=== PATIENT | male | born 1950 | race Caucasian/White ===

== ENCOUNTER 2016-10-26 18:26 | Emergency (ER) | payer OTHER ==
--- NOTE | 2016-10-26 19:04 | ED ORDER SUMMARY ---
..... Patient: KATIE DAVID OrderSheet [facility] VisitID: [id number] [address] [place] [address] 65y, M Registration Date/Time: 10/26/2016 ORDER SHEET Weight: 83.4 kg (stated) Allergies: No Known Drug Allergy GENERAL ORDERS: Dress Wounds (pressure bandage) (18:55 10/26/2016 Zaynab A.R.N.P.) (18:56 [facility] Tech1) MEDICATION ORDERS: IV FLUIDS: ORDER SHEET NOTES: [Electronically signed by Kadi Garg R.N. (19:10 10/26/2016)] [Electronically signed by Marie JonesR.N.PLian (22:44 10/26/2016)] [Electronically locked/signed by Kadi Garg R.N. (19:10 10/26/2016)]
--- NOTE | 2016-10-26 19:04 | ED CLINICAL REPORT ---
Clinical Report - Physicians/Mid Levels [facility] [address] [place] [address] 10/26/2016 18:27 Patient: KATIE DAVID Time Seen: 18:49; initial patient contact, initial documentation, patient care assumed. Arrived- By private vehicle. Historian- patient and family. HISTORY OF PRESENT ILLNESS Chief Complaint: ; ;(bleeding). Not worsened by anything. (relieved by pressure). Severity is described as being severe. No radiation. This started just prior to arrival and is now gone. Symptoms located in the area of the left leg. The patient has not had redness. No swelling, bladder dysfunction, bowel dysfunction, sensory loss or motor loss. No difficulty walking. ( states his leg was bleeding and he filled up sock, thinks vein popped). Patient denies an injury. Similar symptoms previously: None. Recent medical care: Not recently seen/assessed. REVIEW OF SYSTEMS All systems otherwise negative, except as recorded above. PAST HISTORY See nurses notes. ( PROBLEMS: Laceration. Hyperlipidemia. Hypertension. --18:42 Kadi Garg R.N. ADDITIONAL SURGERIES: Hernia Repair. Left shoulder rotator cuff repair. --18:42 Kadi Garg R.N.). SOCIAL HISTORY Heavy tobacco smoker. Regular alcohol use. No drug use. No recent travel. Is a local resident. FAMILY HISTORY Negative. ADDITIONAL NOTES The nursing notes have been reviewed with agreement regarding the chief complaint, HPI, ROS, PMH and patient medications and allergies. PHYSICAL EXAM Vital Signs: 10/26/2016 18:37 BP: 126/86. HR: 88. RR: 16. O2 saturation: 100%. Temp: 97.9 F. Pain level now: 0/10. Have been reviewed as normal and appear to be correct. Appearance: Alert. Oriented X3. No acute distress. Eyes: Pupils equal, round and reactive to light. Eyes normal inspection. Respiratory: No respiratory distress. Skin: Skin intact. Skin warm and dry. Normal skin color. Normal skin turgor. Extremities: Left leg: located in the anterior aspect of mid leg. Neurovascular intact distally. (area to huerta, where varicose vein had been bleeding, no active bleeding now, no closure needed). No erythema, tenderness, swelling, laceration or abrasion. No ecchymosis, puncture wound, foreign body or deformity. No limitation of weight bearing. Lower extremities exhibit normal ROM. No lower extremity edema. Extremities otherwise negative. Gait: Normal gait. Neuro: Oriented X 3. No motor deficit. No sensory deficit. PROGRESS AND PROCEDURES Course of Care: pt appeared upset, asked him what was wrong, and he said he wanted his leg fixed, explained pressure bandage was the tx to fix it, it starts to bleed you hold pressure til it stopped, wounds like these did not require any type of closure, and that there was nothing there to suture. Patient and family counseled in person regarding the patient's stable condition and diagnosis. 19:03. Differential Diagnosis: Other possible considerations: varicose veins, lac, skin avulsion. Above considerations are based on history and physical exam. Differential diagnosis was discussed with patient and patient's family. Disposition: Discharged home in good and improved condition (19:04). Condition: good and stable. CLINICAL IMPRESSION (Varicose Vein - bleeding). INSTRUCTIONS Protect wound and keep wound area clean. Change dressing twice daily. Warnings: GENERAL WARNINGS: Return or contact your physician immediately if your condition worsens or changes unexpectedly, if not improving as expected, or if other problems arise. Specifically return if problem worsens. Follow-up: Follow up with your doctor in about three days as needed and for wound check. Call for an appointment. Summary of care provided to patient. Understanding of the discharge instructions verbalized by patient. (Electronically signed by Marie Jones A.R.N.P. 10/26/2016 22:44)
--- NOTE | 2016-10-26 19:04 | ED NURSING NOTES ---
Clinical Report - Nurses [facility] [address] [place] [address] 10/26/2016 18:27 Patient: KATIE DAVID TRIAGE Triage time 18:37 Oct 26 2016. Acuity: LEVEL 3. Chief Complaint: (bleeding from left lower leg, possibe vericose vein). 18:43 10/26/16. --18:43 Kadi Garg R.N. 18:37 10/26/16. BP: 126/86. HR: 88. RR: 16. O2 saturation: 100%. Temp: 97.9 F. Pain level now: 0/10. --18:43 Kadi Garg R.N. Weight: 83.4 kg stated. Height/Length: 72 inches Per Patient. BMI: 25. --18:36 Kadi Garg R.N. Medications Aspirin. --18:41 Kadi Garg R.N. Vitamin c. --18:41 Kadi Garg R.N. BP medication. --18:41 Kaid Garg R.N. Allergies No Known Drug Allergy. --18:41 Kadi Garg R.N. History Arrived by private vehicle. Historian: patient. Accompanied by family. Location of injuries: left leg. This occurred just prior to arrival. ( Family member noticed pt bleeding from left lower leg. Small lac noted to area. No trauma. Does have varicose veins). No loss of consciousness. No headache, neck pain, back pain, numbness or weakness. PAST MEDICAL HX: Tetanus status: up-to-date. Has not received seasonal influenza immunization. SOCIAL HX: Heavy tobacco smoker (cigarette)- 1 pack per day. Regular alcohol use. No drug use. No infectious disease exposure. ABUSE ASSESSMENT: No report of abuse. SELF HARM ASSESSMENT: A self harm assessment was performed. The patient answered "no" to the question "Have you recently felt down, depressed, or hopeless?", "Have you noticed less interest or pleasure in doing things?", "Do you have thoughts of harming or killing yourself?", "Are you here because you tried to hurt yourself?", "Have you ever tried to hurt yourself before today?", "Have you recently had thoughts about harming or killing others?" and "Do you have any dangerous items in your possession?". FALL RISK ASSESSMENT: Fall risk assessment completed. No fall risk identified. NUTRITIONAL RISK ASSESSMENT: The nutritional risk assessment revealed no deficiencies. FUNCTIONAL ASSESSMENT: Functional assessment: no impairments noted. LEARNING NEEDS ASSESSMENT: The learning needs assessment revealed no barriers. SKIN INTEGRITY ASSESSMENT: Skin integrity risk assessment completed. No skin integrity risk identified. --18:43 Kadi Garg R.N. PROBLEMS: Laceration. Hyperlipidemia. Hypertension. --18:42 Kadi Garg R.N. ADDITIONAL SURGERIES: Hernia Repair. Left shoulder rotator cuff repair. --18:42 Kadi Garg R.N. Interventions ID band on patient. --18:43 Kadi Garg R.N. PHYSICAL ASSESSMENT 18:48 10/26/16. GENERAL / NEURO / PSYCH: Alert. Oriented X 4. HEENT: Pupils equal, round and reactive to light. RESPIRATORY: Respirations not labored. CVS: Pulses within normal limits. Capillary refill less than 2 seconds. GI / : Abdomen soft. EXTREMITIES: Extremities exhibit normal ROM. Neuro-vascular status intact to the extremity. Left leg: superficial 0.5 cm laceration with bleeding (possible rupured varicose vein). SKIN: Skin intact. Skin is warm and dry. --18:48 Kadi Garg R.N. NURSING PROGRESS NOTES 18:37 10/26/16. The initial plan of care for this patient includes an assessment with efforts to address impairment of the integumentary system. This plan of care was discussed with the patient. Reassurance given. Two patient identifiers checked. Call light placed in reach. Side rails up x 1. Bed placed in lowest position. Brakes of bed on. Patient ready for evaluation. --18:47 Kadi Garg R.N. 18:47 10/26/16. Bleeding controlled with manual pressure. --18:47 Kadi Garg R.N. Applied dressing consisting of 4x4 gauze, following the application of antibiotic ointment (wrapped wound with coban.). Bulky dressing not applied. --19:04 Rachell Ac, SERA Tech1. DISPOSITION / DISCHARGE 19:08 10/26/16. Condition at departure: improved and stable. The goals identified in the patient's plan of care were met. No learning barriers present. Discharge instructions provided and reviewed with the patient. Reviewed wound care instructions. Reviewed referral to a primary care physician for followup. Patient verbalized understanding. Written instructions provided in Uzbek. The patient was discharged home and accompanied by family. He left the Emergency Department ambulatory and via private vehicle. Family member driving. FALL RISK ASSESSMENT: Fall risk assessment completed. No fall risk identified. --19:10 Kadi Garg R.N. 18:37 10/26/16. BP: 126/86. HR: 88. RR: 16. O2 saturation: 100%. Temp: 97.9 F. Pain level now: 0/10. --19:10 Kadi Garg R.N. Departure time: 19:Oct 26 2016. --19:10 Kadi Garg R.N. Locked/Released at 10/26/2016 19:10 by Kadi Garg R.N.
--- NOTE | 2016-10-26 19:04 | ED ORDER SUMMARY ---
..... Patient: KATIE DAVID OrderSheet [facility] VisitID: [id number] [address] [place] [address] 65y, M Registration Date/Time: 10/26/2016 ORDER SHEET Weight: 83.4 kg (stated) Allergies: No Known Drug Allergy GENERAL ORDERS: Dress Wounds (pressure bandage) (18:55 10/26/2016 Zaynab A.R.N.P.) (18:56 [facility] Tech1) MEDICATION ORDERS: IV FLUIDS: ORDER SHEET NOTES: [Electronically signed by Kadi Garg R.N. (19:10 10/26/2016)] [Electronically signed by Marie JonesR.N.PLian (22:44 10/26/2016)] [Electronically locked/signed by Kadi Garg R.N. (19:10 10/26/2016)]
--- NOTE | 2016-10-26 22:45 | ED MED RECONCILIATION SUMMARY ---
Patient: KATIE DAVID Medication Reconciliation Report [facility] VisitID: [id number] [address] [place] [address] 65y, M Registration Date/Time: 10/26/2016 Weight: 83.4 kg Height/Length: 72 in. BMI: 25.0 ALLERGIES: No Known Drug Allergy The patient's Home Medications are listed below: THE FOLLOWING MEDICATIONS NEED TO BE RECONCILED: Aspirin BP medication Vitamin c The source(s) of the original Home Medication information: Not obtained. The following Medications were given to the patient in the Emergency Department: None. The following Medications were prescribed to the patient: None.
--- NOTE | 2016-10-26 22:45 | ED DISCHARGE INSTRUCTIONS ---
Patient: KATIE DAVID General Instructions [facility] VisitID: [id number] [address] [place] [address] 65y, M Registration Date/Time: 10/26/2016 (Varicose Vein - bleeding). INSTRUCTIONS Protect wound and keep wound area clean. Change dressing twice daily. Warnings: GENERAL WARNINGS: Return or contact your physician immediately if your condition worsens or changes unexpectedly, if not improving as expected, or if other problems arise. Specifically return if problem worsens. Follow-up: Follow up with your doctor in about three days as needed and for wound check. Call for an appointment. Summary of care provided to patient. Understanding of the discharge instructions verbalized by patient. (Electronically signed by Marie Jones A.R.N.P. 10/26/2016 22:44)
--- NOTE | 2016-10-26 22:45 | ED MAR SUMMARY ---
..... Medication Administration Record [facility] [address] [place], [place] [id number] Patient: KATIE DAVID Visit ID: [id number] 65y, M Weight: 83.4 kg Height/Length: 72 in BMI: 25 ALLERGIES: No Known Drug Allergy
--- NOTE | 2016-10-26 22:45 | ED DISCHARGE INSTRUCTIONS ---
Patient: KATIE DAVID General Instructions [facility] VisitID: [id number] [address] [place] [address] 65y, M Registration Date/Time: 10/26/2016 (Varicose Vein - bleeding). INSTRUCTIONS Protect wound and keep wound area clean. Change dressing twice daily. Warnings: GENERAL WARNINGS: Return or contact your physician immediately if your condition worsens or changes unexpectedly, if not improving as expected, or if other problems arise. Specifically return if problem worsens. Follow-up: Follow up with your doctor in about three days as needed and for wound check. Call for an appointment. Summary of care provided to patient. Understanding of the discharge instructions verbalized by patient. (Electronically signed by Marie Jones A.R.N.P. 10/26/2016 22:44)
--- NOTE | 2016-10-26 22:45 | ED MED RECONCILIATION SUMMARY ---
Patient: KATIE DAVID Medication Reconciliation Report [facility] VisitID: [id number] [address] [place] [address] 65y, M Registration Date/Time: 10/26/2016 Weight: 83.4 kg Height/Length: 72 in. BMI: 25.0 ALLERGIES: No Known Drug Allergy The patient's Home Medications are listed below: THE FOLLOWING MEDICATIONS NEED TO BE RECONCILED: Aspirin BP medication Vitamin c The source(s) of the original Home Medication information: Not obtained. The following Medications were given to the patient in the Emergency Department: None. The following Medications were prescribed to the patient: None.
--- NOTE | 2016-10-26 22:45 | ED MAR SUMMARY ---
..... Medication Administration Record [facility] [address] [place], [place] [id number] Patient: KATIE DAVID Visit ID: [id number] 65y, M Weight: 83.4 kg Height/Length: 72 in BMI: 25 ALLERGIES: No Known Drug Allergy
== END 2016-10-26 19:08 | disposition home or self-care (01) ==
LOC: ED SRH 18:26
DX: I83.892 Varicose veins of left lower extremity with other complications (principal); R58 Hemorrhage, not elsewhere classified; I10 Essential (primary) hypertension; Z79.82 Long term (current) use of aspirin; F17.210 Nicotine dependence, cigarettes, uncomplicated

== ENCOUNTER 2017-03-29 13:08 | Emergency (ER) | payer OTHER ==
--- NOTE | 2017-03-29 13:56 | DIAGNOSTIC IMAGING REPORT ---
PROCEDURE: XR CHEST 1 VIEW INDICATION: RAPID HEART RATE TECHNIQUE: Portable AP view 01:26 p.m. COMPARISON: Chest 08/18/2015 FINDINGS: Lungs are clear. Heart and mediastinum are normal. Thorax is normal. IMPRESSION: 1. Negative chest.
--- NOTE | 2017-03-29 15:14 | DIAGNOSTIC IMAGING REPORT ---
PROCEDURE: CT HEAD WITHOUT CONTRAST INDICATION: HEADACHE TECHNIQUE: Axial CT images were acquired through the head. Coronal and sagittal reformations were created. COMPARISON: None. FINDINGS: There is a large cerebellar infarct in the left posterior inferior cerebellar artery distribution. There is mass effect with displacement of the brain stem as well as early tonsillar herniation. There is also compression and displacement of the fourth ventricle. There is early enlargement of the third ventricle. The lateral ventricles are normal. No intracranial hemorrhage or extraaxial fluid collections. IMPRESSION: 1. 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 2. Findings discussed with Herlinda at 03:[address] scans at this facility use dose modulation, iterative reconstruction, and/or weight-based dosing when appropriate to reduce radiation dose to as low as reasonably achievable.
--- NOTE | 2017-03-29 15:24 | ED NURSING NOTES ---
Clinical Report - Nurses [facility] [address] [place] [address] 03/29/2017 13:09 Patient: KATIE DAVID TRIAGE Triage time 13:15 Mar 29 2017. Acuity: LEVEL 3. Chief Complaint: PALPITATIONS. Alert. KAE COMA SCORE: Kae Coma Scale: 15- eyes open spontaneously (4); best verbal response- oriented x 4 (5); best motor response- obeys commands (6). --13:31 Huang Paiz R.N. 13:15 03/29/17. BP: 145/113. HR: 153. RR: 19. O2 saturation: 95% on room air. Temp: 99.4 F (oral). Pain level now: 0/10. --13:31 Huang Paiz R.N. Weight: 87.5 kg measured. Height/Length: 72 inches Per Patient. BMI: 26.2. --13:16 Huang Paiz R.N. Medications Aspirin 81 mg, daily. --13:26 Huang Paiz R.N. Cardizem CD Oral (Capsule Extended Release 24 Hour 120 mg) 1 capsule, 2 x daily. --13:26 Huang Paiz R.N. Lovastatin Oral 20 mg, at bedtime. --13:26 Huang Paiz R.N. Viagra Oral (Tablet 100 mg) 1 tablet, as needed. --13:26 Huang Paiz R.N. Multivitamins Oral 1 pill, daily. --13:27 Huang Paiz R.N. Allergies No Known Drug Allergy. --13:26 Huang Paiz R.N. History Arrived by EMS. Primary physician (Nura). ( Rapid Heart Rate, which was found at the clinic this AM when he went to see his PCP.). This is a new problem. (Uncertain start time). Treatment PERSONAL ASSISTANT: (IV start by EMS and Cardizem IVP given by EMS PERSONAL ASSISTANT). PAST MEDICAL HX: Heart disease: (A. Fib or A. Flutter). Immunizations: up-to-date. SOCIAL HX: Heavy tobacco smoker (cigarette)- 1 pack per day. Alcohol use; consumes two liquor drinks daily. No drug use. No infectious disease exposure. ABUSE ASSESSMENT: No report of abuse. FALL RISK ASSESSMENT: Fall risk assessment completed. No fall risk identified. NUTRITIONAL RISK ASSESSMENT: The nutritional risk assessment revealed no deficiencies. FUNCTIONAL ASSESSMENT: Functional assessment: no impairments noted. LEARNING NEEDS ASSESSMENT: The learning needs assessment revealed no barriers. SKIN INTEGRITY ASSESSMENT: Skin integrity risk assessment completed. No skin integrity risk identified. --13:31 Huang Paiz R.N. ( Pt states that he has had a MTZ for the last two days.). --13:43 Huang Paiz R.N. Interventions ID band on patient. To treatment room. --13:31 Huang Paiz R.N. PHYSICAL ASSESSMENT To room via stretcher. GENERAL / NEURO / PSYCH: Alert. Oriented X 4. Appears in no acute distress. HEENT: No facial asymmetry noted. Mucous membranes are pink. RESPIRATORY: Inspiratory bilateral wheezes present and wheezes in the right and left upper lung anteriorly. CVS: Cardiac rhythm: narrow complex supraventricular tachycardia. Capillary refill less than 2 seconds. GI / : Abdomen soft and nontender and normal bowel sounds. SKIN: Skin intact. Skin is warm and dry. Normal skin turgor. --13:32 Huang Paiz R.N. NURSING PROGRESS NOTES Oxygen administered by nasal cannula at 2 liters. stone banker, pulse oximeter and NIBP monitor placed on patient; molasses coloring operator- Lead II and V1; monitor alarms on. Reassurance given to the patient. Patient identifiers checked. Call light placed in reach. Side rails up x 2. Bed placed in lowest position. Brakes of bed on. Patient ready for evaluation- chart flagged and ED physician notified. --13:33 Huang Paiz R.N. 13:19 03/29/2017 Site #1 started via IV in the right antecubital space with an 18g angiocath, with aseptic technique and good blood return. --13:34 Huang Paiz R.N. 13:19 03/29/2017 Started bag #1 1000 mL IV Fluids IV NS (Saline); bolus of 500 mL over 30 second(s) then at 1000 mL/hr over 60 minute(s) via site #1. Allergies verified and confirmed 5 rights. IV patency established. IV site checked: no pain, redness, or swelling. IV flushed thoroughly pre- and post-medication administration. --13:36 Huang Paiz R.N. 13:50 03/29/2017 Diltiazem IVP 15 mg given over 2 minute(s) via site #1. Allergies verified and confirmed 5 rights. IV patency established. IV site checked: no pain, redness, or swelling. IV flushed thoroughly pre- and post-medication administration. IVP given by RN. --13:54 Huang Paiz R.N. 13:50. Checked patient name, birthdate and medical record number: patient confirmed. Instructions provided to collect clean catch urine and patient verbalized understanding. Clean catch urine collected with return of yana-colored clear urine; odor is normal; sample sent to lab for urinalysis, culture and drug screen. Specimen labeled in the presence of the patient. --13:55 Huang Paiz R.N. 14:10 03/29/17. BP: 128/78. HR: 122. RR: 16. O2 saturation: 99% on nasal cannula at 2 liters/minute. Pain level now: 0/10. --14:11 Huang Paiz R.N. 14:18 03/29/17. BP: 106/68. HR: 106. RR: 16. O2 saturation: 99%. Pain level now: 0/10. --14:20 Huang Paiz R.N. 14:10 03/29/2017 Diltiazem IVP 10 mg given over 2 minute(s) via site #1. Allergies verified and confirmed 5 rights. IV patency established. IV site checked: no pain, redness, or swelling. IV flushed thoroughly pre- and post-medication administration. IVP given by RN. --14:20 Huang Paiz R.N. 14:20 03/29/2017 IV Fluids IV NS Bag Change: bag #1 infused. Total amount infused: 1000. STARTED bag #2 (1000 mL) at 200 mL/hr via IV pump. Confirmed 5 rights. IV patency established. IV site checked: no pain, redness, or swelling. IV flushed thoroughly. --14:25 Huang Paiz R.N. 14:40 03/29/17. Patient transported to [place] by stretcher with tech. --14:40 Huang Paiz R.N. 15:00 03/29/17. Patient returned from CT by stretcher with tech. --15:11 Huang Paiz R.N. 15:11 03/29/17. BP: 127/79. HR: 132. RR: 16. O2 saturation: 99% on room air. --15:12 Huang Paiz R.N. 15:24 03/29/17. BP: 110/90. HR: 131 (regularly-irregular). RR: 16. O2 saturation: 99% on nasal cannula at 2 liters/minute. Pain level now: 12/23. Additional comments: MTZ pain. --15:27 Huang Paiz R.N. 16:10 03/29/2017 Site #[address] upon transfer; patent, no pain and no signs of infiltration. No blood return present. Flushed; flushes easily. --00:07 Huang Paiz R.N. 16:10 03/29/2017 IV Fluids IV NS Continued: upon discharge at the rate of 200 mL/hr. 600 mL remaining bag #2. IV patency established. IV site checked: no pain, redness, or swelling. IV flushed thoroughly. --00:09 Huang Paiz R.N. <<STRICKEN ENTRY-- 16:20 03/29/2017 IV Fluids IV NS Continued: upon discharge at the rate of 200 mL/hr. 600 mL remaining bag #2. IV patency established. IV site checked: no pain, redness, or swelling. IV flushed thoroughly. --00:04 Huang Paiz R.N. --END STRIKE>> Correction. --00:09 Huang Paiz R.N. DISPOSITION / DISCHARGE Departure time: 1610. --16:35 Huang Paiz R.N. 16:00 03/29/17. BP: 100/76. HR: 140. RR: 16. O2 saturation: 98% on nasal cannula at 2 liters/minute. Temp: 98.5 F (oral). Pain level now: 12/23. Additional comments: MTZ psin. --23:59 Huang Paiz R.N. Departure time: 1610. Transferred to [facility]. Transported via helicopter by transport team with monitor, IV and O2. Report was given to a nurse via a fax. All questions were answered. Report was acknowledged and care was transferred. Bed obtained and ready. Patient's personal items; items were placed in belongings bag and transported with the patient. --00:00 Huang Paiz R.N. Locked/Released at 03/30/2017 0:09 by Huang Paiz R.N.
--- NOTE | 2017-03-29 15:24 | ED NURSING NOTES ---
Clinical Report - Nurses [facility] [address] [place] [address] 03/29/2017 13:09 Patient: KATIE DAVID TRIAGE Triage time 13:15 Mar 29 2017. Acuity: LEVEL 3. Chief Complaint: PALPITATIONS. Alert. KAE COMA SCORE: Kae Coma Scale: 15- eyes open spontaneously (4); best verbal response- oriented x 4 (5); best motor response- obeys commands (6). --13:31 Huang Paiz R.N. 13:15 03/29/17. BP: 145/113. HR: 153. RR: 19. O2 saturation: 95% on room air. Temp: 99.4 F (oral). Pain level now: 0/10. --13:31 Huang Paiz R.N. Weight: 87.5 kg measured. Height/Length: 72 inches Per Patient. BMI: 26.2. --13:16 Huang Paiz R.N. Medications Aspirin 81 mg, daily. --13:26 uHang Paiz R.N. Cardizem CD Oral (Capsule Extended Release 24 Hour 120 mg) 1 capsule, 2 x daily. --13:26 Huang Paiz R.N. Lovastatin Oral 20 mg, at bedtime. --13:26 Huang Paiz R.N. Viagra Oral (Tablet 100 mg) 1 tablet, as needed. --13:26 Huang Paiz R.N. Multivitamins Oral 1 pill, daily. --13:27 Huang Paiz R.N. Allergies No Known Drug Allergy. --13:26 Huang Paiz R.N. History Arrived by EMS. Primary physician (Nura). ( Rapid Heart Rate, which was found at the clinic this AM when he went to see his PCP.). This is a new problem. (Uncertain start time). 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 PAST MEDICAL HX: Heart disease: (A. Fib or A. Flutter). Immunizations: up-to-date. SOCIAL HX: Heavy tobacco smoker (cigarette)- 1 pack per day. Alcohol use; consumes two liquor drinks daily. No drug use. No infectious disease exposure. ABUSE ASSESSMENT: No report of abuse. FALL RISK ASSESSMENT: Fall risk assessment completed. No fall risk identified. NUTRITIONAL RISK ASSESSMENT: The nutritional risk assessment revealed no deficiencies. FUNCTIONAL ASSESSMENT: Functional assessment: no impairments noted. LEARNING NEEDS ASSESSMENT: The learning needs assessment revealed no barriers. SKIN INTEGRITY ASSESSMENT: Skin integrity risk assessment completed. No skin integrity risk identified. --13:31 Huang Paiz R.N. ( Pt states that he has had a MTZ for the last two days.). --13:43 Huang Paiz R.N. Interventions ID band on patient. To treatment room. --13:31 Huang Paiz R.N. PHYSICAL ASSESSMENT To room via stretcher. GENERAL / NEURO / PSYCH: Alert. Oriented X 4. Appears in no acute distress. HEENT: No facial asymmetry noted. Mucous membranes are pink. RESPIRATORY: Inspiratory bilateral wheezes present and wheezes in the right and left upper lung anteriorly. CVS: Cardiac rhythm: narrow complex supraventricular tachycardia. Capillary refill less than 2 seconds. GI / : Abdomen soft and nontender and normal bowel sounds. SKIN: Skin intact. Skin is warm and dry. Normal skin turgor. --13:32 Huang Paiz R.N. NURSING PROGRESS NOTES Oxygen administered by nasal cannula at 2 liters. patient monitor, pulse oximeter and NIBP monitor placed on patient; director of cardiac rehabilitation- Lead II and V1; monitor alarms on. Reassurance given to the patient. Patient identifiers checked. Call light placed in reach. Side rails up x 2. Bed placed in lowest position. Brakes of bed on. Patient ready for evaluation- chart flagged and ED physician notified. --13:33 Huang Paiz R.N. 13:19 03/29/2017 Site #1 started via IV in the right antecubital space with an 18g angiocath, with aseptic technique and good blood return. --13:34 Huang Paiz R.N. 13:19 03/29/2017 Started bag #1 1000 mL IV Fluids IV NS (Saline); bolus of 500 mL over 30 second(s) then at 1000 mL/hr over 60 minute(s) via site #1. Allergies verified and confirmed 5 rights. IV patency established. IV site checked: no pain, redness, or swelling. IV flushed thoroughly pre- and post-medication administration. --13:36 Huang Paiz R.N. 13:50 03/29/2017 Diltiazem IVP 15 mg given over 2 minute(s) via site #1. Allergies verified and confirmed 5 rights. IV patency established. IV site checked: no pain, redness, or swelling. IV flushed thoroughly pre- and post-medication administration. IVP given by RN. --13:54 Huang Paiz R.N. 13:50. Checked patient name, birthdate and medical record number: patient confirmed. Instructions provided to collect clean catch urine and patient verbalized understanding. Clean catch urine collected with return of yana-colored clear urine; odor is normal; sample sent to lab for urinalysis, culture and drug screen. Specimen labeled in the presence of the patient. --13:55 Huang Paiz R.N. 14:10 03/29/17. BP: 128/78. HR: 122. RR: 16. O2 saturation: 99% on nasal cannula at 2 liters/minute. Pain level now: 0/10. --14:11 Huang Paiz R.N. 14:18 03/29/17. BP: 106/68. HR: 106. RR: 16. O2 saturation: 99%. Pain level now: 0/10. --14:20 Huang Paiz R.N. 14:10 03/29/2017 Diltiazem IVP 10 mg given over 2 minute(s) via site #1. Allergies verified and confirmed 5 rights. IV patency established. IV site checked: no pain, redness, or swelling. IV flushed thoroughly pre- and post-medication administration. IVP given by RN. --14:20 Huang Paiz R.N. 14:20 03/29/2017 IV Fluids IV NS Bag Change: bag #1 infused. Total amount infused: 1000. STARTED bag #2 (1000 mL) at 200 mL/hr via IV pump. Confirmed 5 rights. IV patency established. IV site checked: no pain, redness, or swelling. IV flushed thoroughly. --14:25 Huang Paiz R.N. 14:40 03/29/17. Patient transported to [place] by stretcher with tech. --14:40 Huang Paiz R.N. 15:00 03/29/17. Patient returned from CT by stretcher with tech. --15:11 Huang Paiz R.N. 15:11 03/29/17. BP: 127/79. HR: 132. RR: 16. O2 saturation: 99% on room air. --15:12 Huang Paiz R.N. 15:24 03/29/17. BP: 110/90. HR: 131 (regularly-irregular). RR: 16. O2 saturation: 99% on nasal cannula at 2 liters/minute. Pain level now: 12/23. Additional comments: MTZ pain. --15:27 Huang aPiz R.N. 16:10 03/29/2017 Site #[address] upon transfer; patent, no pain and no signs of infiltration. No blood return present. Flushed; flushes easily. --00:07 Huang Paiz R.N. 16:10 03/29/2017 IV Fluids IV NS Continued: upon discharge at the rate of 200 mL/hr. 600 mL remaining bag #2. IV patency established. IV site checked: no pain, redness, or swelling. IV flushed thoroughly. --00:09 Huang Paiz R.N. <<STRICKEN ENTRY-- 16:20 03/29/2017 IV Fluids IV NS Continued: upon discharge at the rate of 200 mL/hr. 600 mL remaining bag #2. IV patency established. IV site checked: no pain, redness, or swelling. IV flushed thoroughly. --00:04 Huang Paiz R.N. --END STRIKE>> Correction. --00:09 Huang Paiz R.N. DISPOSITION / DISCHARGE Departure time: 1610. --16:35 Huang Paiz R.N. 16:00 03/29/17. BP: 100/76. HR: 140. RR: 16. O2 saturation: 98% on nasal cannula at 2 liters/minute. Temp: 98.5 F (oral). Pain level now: 12/23. Additional comments: MTZ psin. --23:59 Huang Paiz R.N. Departure time: 1610. Transferred to [facility]. Transported via helicopter by transport team with monitor, IV and O2. Report was given to a nurse via a fax. All questions were answered. Report was acknowledged and care was transferred. Bed obtained and ready. Patient's personal items; items were placed in belongings bag and transported with the patient. --00:00 Huang Paiz R.N. Locked/Released at 03/30/2017 0:09 by Huang Paiz R.N.
--- NOTE | 2017-03-29 15:24 | ED CLINICAL REPORT ---
Clinical Report - Physicians/Mid Levels [place] [address] [place] [address] 03/29/2017 13:09 Patient: KATIE DAVID Time Seen: 13:13. Arrived- By ambulance. Historian- patient and EMS personnel. Note: Patient has a primary care physician on staff; PCP referred patient for evaluation. HISTORY OF PRESENT ILLNESS Chief Complaint: PALPITATIONS. headache. Modifying factors. Not worsened by anything. Not relieved by anything. This started about 3 days ago (12JUN) and is still present. Can not recall activity at onset. No history of caffeine use prior to onset, decongestants use prior to onset, cocaine use prior to onset or amphetamine use prior to onset. It was gradual in onset and has been waxing/waning. It is described as a fast heart beat. No chest pain or discomfort, difficulty breathing, fainting episodes or dizziness. 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 Treated with Valsalva maneuver prior to arrival (Diltiazem 25 mg IV given). Similar symptoms previously: None. Recent medical care: The patient was seen recently in a clinic. REVIEW OF SYSTEMS No fever, chills, cough, orthopnea or calf pain. No sore throat, blurred vision, nausea, abdominal pain or black stools. No difficulty with urination, skin rash, depression, trouble sleeping or vomiting. No diarrhea, bloody stools, head injury, numbness or weakness. The patient has had a moderate left-sided and frontal headache (for 3 days). The headache has been similar to previous ones. No nausea, vomiting, fever or prodromal symptoms. No visual auras or visual disturbances, photophobia, numbness or weakness. He has had dizziness. He has had mild difficulty walking. The patient has also had coordination problems. All systems otherwise negative, except as recorded above. PAST HISTORY See nurses notes. PCP: Elvira De Oliveira ([facility]) PROBLEMS: Laceration. Hyperlipidemia. Hypertension. SURGERIES: Hernia Repair. Left shoulder rotator cuff repair. No history of atrial fibrillation, congestive heart failure, valvular heart disease, thyroid disease or coronary artery disease. No history of cardiomegaly. Has not had depression. Has not had anxiety problems. Medications: Multivitamins Oral 1 pill, daily. Viagra Oral (Tablet 100 mg) 1 tablet, as needed. Lovastatin Oral 20 mg, at bedtime. Cardizem CD Oral (Capsule Extended Release 24 Hour 120 mg) 1 capsule, 2 x daily. Aspirin 81 mg, daily. Allergies: No Known Drug Allergy. SOCIAL HISTORY Smoker- current status unknown. Alcohol use. (2 drinks daily). No drug use. Is a local resident. ADDITIONAL NOTES The nursing notes have been reviewed. PHYSICAL EXAM Vital Signs: 03/29/2017 13:15 BP: 145/113. HR: 153. RR: 19. O2 saturation: 95%. Temp: 99.4 F. Pain level now: 0/10. Appearance: Alert. Oriented X3. Patient in mild distress. Eyes: Eyes normal inspection. No scleral icterus or pale conjunctivae. ENT: Pharynx normal. No pharyngeal erythema or tonsillar exudate. The mucous membranes are not dry. Neck: Normal inspection. Neck supple. CVS: Tachycardia. Abnormal rhythm, which is irregularly irregular. Pulses normal. Respiratory: No respiratory distress. Breath sounds normal. Abdomen: Soft and nontender. No mass. Back: Normal external inspection. Skin: Skin warm and dry. Normal skin color. No rash. Normal skin turgor. Extremities: Extremities exhibit normal ROM. No calf tenderness. No lower extremity edema. Neuro: Oriented X 3. No motor deficit. No sensory deficit. LABS, X-RAYS, AND EKG EKG: EKG time: (13:17). Atrial flutter with 2 to 1 conduction (ventricular rate 150). Incomplete RBBB. Left axis deviation c/w left anterior hemiblock. Non-specific ST segment / T wave abnormalities. Changes present when compared to prior EKG. The EKG appears to be a good tracing. Rhythm Strip #1: Atrial flutter with 2 to 1 conduction (ventricular rate 150). No ectopy. Non-specific ST segment / T-wave abnormalities. Chest X-ray: No acute disease. Normal lung markings present. Normal heart size. Mediastinum normal. Great vessels normal. No infiltrate. Views: AP (portable). Technique: good. The X-rays were interpreted contemporaneously by me. CT Head: (PROCEDURE: CT HEAD WITHOUT CONTRAST INDICATION: HEADACHE TECHNIQUE: Axial CT images were acquired through the head. Coronal and sagittal reformations were created. COMPARISON: None. FINDINGS: There is a large cerebellar infarct in the left posterior inferior cerebellar artery distribution. There is mass effect with displacement of the brain stem as well as early tonsillar herniation. There is also compression and displacement of the fourth ventricle. There is early enlargement of the third ventricle. The lateral ventricles are normal. No intracranial hemorrhage or extraaxial fluid collections. IMPRESSION: 1. Large cerebellar infarct with brainstem compression and early tonsillar herniation.). Head CT performed without contrast. The study was independently viewed by me, interpreted by the radiologist and discussed with the radiologist. Laboratory Tests: UA-Culture if indicated: (ZULEIKA: 03/29/2017 13:50) ( MsgRcvd 03/29/2017 14:20) Final results Test Result Flag Units (Reference) URINE COLOR YELLOW URINE APPEARANCE CLEAR URINE GLUCOSE NEGATIVE (NEGATIVE) URINE BILIRUBIN NEGATIVE (NEGATIVE) URINE KETONE 1+ (NEGATIVE) URINE SPECIFIC GRAVITY >= 1.030 (1.010-1.030) URINE PH 6.0 (5.0-8.0) URINE PROTEIN TRACE (NEGATIVE) URINE UROBILINOGEN 0.2 EU/dL (0.2-1.0) URINE NITRITE NEGATIVE (NEGATIVE) URINE BLOOD 2+ (NEGATIVE) URINE LEUK ESTERASE NEGATIVE (NEGATIVE) URINE RBC 5-10 rbc/hpf (0-1) URINE WBC 0-1 wbc/hpf (0-1) URINE EPITHELIAL CELLS 1-3 EPI/hpf (0-5) URINE BACTERIA NONE SEEN (NONE SEEN) URINE COMMENT CULT NOT INDICATED 1+ MUCOUSURINE CULTURES ARE SET-UP BASED ON THE FOLLOWING CRITERIA:POSITIVE NITRITEPOSITIVE LEUKOCYTE ESTERASEGREATER THAN 10 WHITE BLOOD CELLSMODERATE (2+) OR GREATER BACTERIA CBC w Diff: (ZULEIKA: 03/29/2017 13:35) ( [facility] [place] 13:58) Final results Test Result Flag Units (Reference) WHITE BLOOD COUNT 11.4 K/uL (4.5-11.5) RED BLOOD COUNT 5.04 M/uL (4.50-5.90) HEMOGLOBIN 16.6 gm/dL (13.5-17.5) HEMATOCRIT 49.4 % (41.0-53.0) MEAN CELL VOLUME 98 fL (80-100) MEAN CORPUSCULAR HGB 33 pg (26-34) MEAN CORPUSCULAR HGB CONC 34 g/dL (31-37) RED CELL DISTRIBUTION WIDTH 14.1 % (11.6-14.8) PLATELET COUNT 175 K/uL (150-400) NEUTROPHIL % 82.0 H % (50-75) LYMPH % 12.4 L % (25-40) MONO % 5.1 % (3-14) EOSINOPHIL % 0.2 % (0-4) BASOPHIL % 0.3 % (0-2) Urine Drug Screen: (ZULEIKA: 03/29/2017 13:50) ( [facility] [place] 14:23) Final results Test Result Flag Units (Reference) AMPHETAMINE/METHAMPHETAMINE NEGATIVE (NEGATIVE) BARBITURATE NEGATIVE (NEGATIVE) BENZODIAZEPINE NEGATIVE (NEGATIVE) CANNABINOID NEGATIVE (NEGATIVE) COCAINE NEGATIVE (NEGATIVE) ECSTASY NEGATIVE (NEGATIVE) METHADONE NEGATIVE (NEGATIVE) OPIATE NEGATIVE (NEGATIVE) The urine drug screen is a qualitative screening test fordrug overdose and abuse. All screen results should beconsidered as presumptive.Drugs screened for are as follows:BenzodiazepinesCocaineAmphetamines/MetamphetaminesTHC (Tetrahydrocannabinol)OpiatesBarbituratesEcstasyMethadonePositive results are unconfirmed. For confirmation, notifythe lab for the specimen to be sent to the reference lab.All confirmations must be performed by a differentmethodology.The ingestion of natural herbal and plant productscontaining Ephedra/Ephedra metabolites can produce in urineone or more substances capable of cross reacting withamphetamine/methamphetamine immunoassays. These testsprovide a preliminary result only. A more specificalternative chemical method must be used to obtain aconfirmed analytical result. BNP: (ZULEIKA: 03/29/2017 13:35) ( [facility] [place]2017 14:22) Final results Test Result Flag Units (Reference) B-TYPE NATRIURETIC PEPTIDE 274 H pg/ml (5-100) CHEM 13 PANEL: (ZULEIKA: 03/29/2017 13:35) ( MsgRcvd 03/29/2017 14:19) Final results Test Result Flag Units (Reference) GLUCOSE 122 H mg/dL (70-110) BUN 16 mg/dL (7-18) CREATININE 0.9 mg/dL (0.6-1.3) Estimated GFR >60 mL/min Estimated GFR- >60 mL/min Note: Persistent reduction over 3 months in eGFR<60 mL/min/1.73 m2 defines CKD. Patients with eGFR values>=60 mL/min/1.73 m2 may also have CKD if evidence ofpersistent proteinuria. Additional information may be foundat [email or web address].org. SODIUM 143 mmol/L (136-145) POTASSIUM 4.5 mmol/L (3.5-5.1) CHLORIDE 108 H mmol/L (98-107) CARBON DIOXIDE 24 mmol/L (21-32) CALCIUM 8.4 L mg/dL (8.5-10.1) TOTAL PROTEIN 7.0 g/dL (6.4-8.2) ALBUMIN 3.3 g/dL (3.3-5.0) BILIRUBIN, TOTAL 0.8 mg/dL (0.0-1.0) ALKALINE PHOSPHATASE 70 U/L (46-116) AST (SGOT) 23 U/L (15-37) ALT (SGPT) 35 U/L (12-78) MAGNESIUM 1.9 mg/dL (1.8-2.4) AMYLASE 53 U/L (25-115) CPK 47 U/L (24-260) TROPONIN I <0.05 ng/mL (0.00-1.5) TROPONIN REFERENCE RANGE:<0.1 NEGATIVE0.1-1.5 INDETERMINANT>1.5 POSITIVE THYROID STIMULATING HORMONE 1.412 uIU/mL (0.30-3.74) . Pulse Oximetry: 03/29/2017 13:15 O2 saturation: 95%. (FIO2 - room air). Interpretation: normal. 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 1 L NS IV. ASA 81 mg po - taken prior to arrival. 15:00. HR 100-120's. Pt still with moderate left frontal area MTZ, but otherwise no CP, SOB or upper or lower extremity numbness or weakness or dysarthria or dysphagia. CT with marked changes c/w large cerebellar infarct and early herniation. stroke attending contacted. NAYANW will transport pt emergently. HR still elevated, but do not want to further drop the BP in the setting of acute stroke. Pt is tolerating (symptomatically) HR in 140's well. Critical care performed (75 minutes). Time is exclusive of separately billable procedures. Time includes: direct patient care, patient reassessment, coordination of patient care, interpretation of data (laboratory data, pulse oximetry, chest xrays and prior electrocardiograms), review of patient's medical records, medical consultation, family consultation regarding treatment decisions and documentation of patient care. Procedures excluded from critical care time: electrocardiography. Discussed case with health care provider ([facility] transfer center call returned 15:17). Patient/family counseled. Old ED records reviewed. Transfer orders written. Disposition: Transferred to [facility]. Condition: serious. CLINICAL IMPRESSION Acute vascular headache. 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 TPA was not administered . tPA was not administered because the time patient was last known well was greater than 3 hours prior to arrival and exclusion criteria were present. patient arrived in the emergency department greater than 2 hours since time last known well. No hemorrhage. New onset atrial flutter with uncontrolled rate. (Electronically signed by Robert Pate DO 03/30/2017 9:57)
--- NOTE | 2017-03-29 15:24 | ED CLINICAL REPORT ---
Clinical Report - Physicians/Mid Levels [place] [address] [place] [address] 03/29/2017 13:09 Patient: KATIE DAVID Time Seen: 13:13. Arrived- By ambulance. Historian- patient and EMS personnel. Note: Patient has a primary care physician on staff; PCP referred patient for evaluation. HISTORY OF PRESENT ILLNESS Chief Complaint: PALPITATIONS. headache. Modifying factors. Not worsened by anything. Not relieved by anything. This started about 3 days ago (12JUN) and is still present. Can not recall activity at onset. No history of caffeine use prior to onset, decongestants use prior to onset, cocaine use prior to onset or amphetamine use prior to onset. It was gradual in onset and has been waxing/waning. It is described as a fast heart beat. No chest pain or discomfort, difficulty breathing, fainting episodes or dizziness. 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 Treated with Valsalva maneuver prior to arrival (Diltiazem 25 mg IV given). Similar symptoms previously: None. Recent medical care: The patient was seen recently in a clinic. REVIEW OF SYSTEMS No fever, chills, cough, orthopnea or calf pain. No sore throat, blurred vision, nausea, abdominal pain or black stools. No difficulty with urination, skin rash, depression, trouble sleeping or vomiting. No diarrhea, bloody stools, head injury, numbness or weakness. The patient has had a moderate left-sided and frontal headache (for 3 days). The headache has been similar to previous ones. No nausea, vomiting, fever or prodromal symptoms. No visual auras or visual disturbances, photophobia, numbness or weakness. He has had dizziness. He has had mild difficulty walking. The patient has also had coordination problems. All systems otherwise negative, except as recorded above. PAST HISTORY See nurses notes. PCP: Elvira De Oliveira ([facility]) PROBLEMS: Laceration. Hyperlipidemia. Hypertension. SURGERIES: Hernia Repair. Left shoulder rotator cuff repair. No history of atrial fibrillation, congestive heart failure, valvular heart disease, thyroid disease or coronary artery disease. No history of cardiomegaly. Has not had depression. Has not had anxiety problems. Medications: Multivitamins Oral 1 pill, daily. Viagra Oral (Tablet 100 mg) 1 tablet, as needed. Lovastatin Oral 20 mg, at bedtime. Cardizem CD Oral (Capsule Extended Release 24 Hour 120 mg) 1 capsule, 2 x daily. Aspirin 81 mg, daily. Allergies: No Known Drug Allergy. SOCIAL HISTORY Smoker- current status unknown. Alcohol use. (2 drinks daily). No drug use. Is a local resident. ADDITIONAL NOTES The nursing notes have been reviewed. PHYSICAL EXAM Vital Signs: 03/29/2017 13:15 BP: 145/113. HR: 153. RR: 19. O2 saturation: 95%. Temp: 99.4 F. Pain level now: 0/10. Appearance: Alert. Oriented X3. Patient in mild distress. Eyes: Eyes normal inspection. No scleral icterus or pale conjunctivae. ENT: Pharynx normal. No pharyngeal erythema or tonsillar exudate. The mucous membranes are not dry. Neck: Normal inspection. Neck supple. CVS: Tachycardia. Abnormal rhythm, which is irregularly irregular. Pulses normal. Respiratory: No respiratory distress. Breath sounds normal. Abdomen: Soft and nontender. No mass. Back: Normal external inspection. Skin: Skin warm and dry. Normal skin color. No rash. Normal skin turgor. Extremities: Extremities exhibit normal ROM. No calf tenderness. No lower extremity edema. Neuro: Oriented X 3. No motor deficit. No sensory deficit. LABS, X-RAYS, AND EKG EKG: EKG time: (13:17). Atrial flutter with 2 to 1 conduction (ventricular rate 150). Incomplete RBBB. Left axis deviation c/w left anterior hemiblock. Non-specific ST segment / T wave abnormalities. Changes present when compared to prior EKG. The EKG appears to be a good tracing. Rhythm Strip #1: Atrial flutter with 2 to 1 conduction (ventricular rate 150). No ectopy. Non-specific ST segment / T-wave abnormalities. Chest X-ray: No acute disease. Normal lung markings present. Normal heart size. Mediastinum normal. Great vessels normal. No infiltrate. Views: AP (portable). Technique: good. The X-rays were interpreted contemporaneously by me. CT Head: (PROCEDURE: CT HEAD WITHOUT CONTRAST INDICATION: HEADACHE TECHNIQUE: Axial CT images were acquired through the head. Coronal and sagittal reformations were created. COMPARISON: None. FINDINGS: There is a large cerebellar infarct in the left posterior inferior cerebellar artery distribution. There is mass effect with displacement of the brain stem as well as early tonsillar herniation. There is also compression and displacement of the fourth ventricle. There is early enlargement of the third ventricle. The lateral ventricles are normal. No intracranial hemorrhage or extraaxial fluid collections. IMPRESSION: 1. Large cerebellar infarct with brainstem compression and early tonsillar herniation.). Head CT performed without contrast. The study was independently viewed by me, interpreted by the radiologist and discussed with the radiologist. Laboratory Tests: UA-Culture if indicated: (ZULEIKA: 03/29/2017 13:50) ( MsgRcvd 03/29/2017 14:20) Final results Test Result Flag Units (Reference) URINE COLOR YELLOW URINE APPEARANCE CLEAR URINE GLUCOSE NEGATIVE (NEGATIVE) URINE BILIRUBIN NEGATIVE (NEGATIVE) URINE KETONE 1+ (NEGATIVE) URINE SPECIFIC GRAVITY >= 1.030 (1.010-1.030) URINE PH 6.0 (5.0-8.0) URINE PROTEIN TRACE (NEGATIVE) URINE UROBILINOGEN 0.2 EU/dL (0.2-1.0) URINE NITRITE NEGATIVE (NEGATIVE) URINE BLOOD 2+ (NEGATIVE) URINE LEUK ESTERASE NEGATIVE (NEGATIVE) URINE RBC 5-10 rbc/hpf (0-1) URINE WBC 0-1 wbc/hpf (0-1) URINE EPITHELIAL CELLS 1-3 EPI/hpf (0-5) URINE BACTERIA NONE SEEN (NONE SEEN) URINE COMMENT CULT NOT INDICATED 1+ MUCOUSURINE CULTURES ARE SET-UP BASED ON THE FOLLOWING CRITERIA:POSITIVE NITRITEPOSITIVE LEUKOCYTE ESTERASEGREATER THAN 10 WHITE BLOOD CELLSMODERATE (2+) OR GREATER BACTERIA CBC w Diff: (ZULEIKA: 03/29/2017 13:35) ( [facility] 13[facility]58) Final results Test Result Flag Units (Reference) WHITE BLOOD COUNT 11.4 K/uL (4.5-11.5) RED BLOOD COUNT 5.04 M/uL (4.50-5.90) HEMOGLOBIN 16.6 gm/dL (13.5-17.5) HEMATOCRIT 49.4 % (41.0-53.0) MEAN CELL VOLUME 98 fL (80-100) MEAN CORPUSCULAR HGB 33 pg (26-34) MEAN CORPUSCULAR HGB CONC 34 g/dL (31-37) RED CELL DISTRIBUTION WIDTH 14.1 % (11.6-14.8) PLATELET COUNT 175 K/uL (150-400) NEUTROPHIL % 82.0 H % (50-75) LYMPH % 12.4 L % (25-40) MONO % 5.1 % (3-14) EOSINOPHIL % 0.2 % (0-4) BASOPHIL % 0.3 % (0-2) Urine Drug Screen: (ZULEIKA: 03/29/2017 13:50) ( [facility] 03/29/2017 14:23) Final results Test Result Flag Units (Reference) AMPHETAMINE/METHAMPHETAMINE NEGATIVE (NEGATIVE) BARBITURATE NEGATIVE (NEGATIVE) BENZODIAZEPINE NEGATIVE (NEGATIVE) CANNABINOID NEGATIVE (NEGATIVE) COCAINE NEGATIVE (NEGATIVE) ECSTASY NEGATIVE (NEGATIVE) METHADONE NEGATIVE (NEGATIVE) OPIATE NEGATIVE (NEGATIVE) The urine drug screen is a qualitative screening test fordrug overdose and abuse. All screen results should beconsidered as presumptive.Drugs screened for are as follows:BenzodiazepinesCocaineAmphetamines/MetamphetaminesTHC (Tetrahydrocannabinol)OpiatesBarbituratesEcstasyMethadonePositive results are unconfirmed. For confirmation, notifythe lab for the specimen to be sent to the reference lab.All confirmations must be performed by a differentmethodology.The ingestion of natural herbal and plant productscontaining Ephedra/Ephedra metabolites can produce in urineone or more substances capable of cross reacting withamphetamine/methamphetamine immunoassays. These testsprovide a preliminary result only. A more specificalternative chemical method must be used to obtain aconfirmed analytical result. BNP: (ZULEIKA: 03/29/2017 13:35) ( [facility] 03/29/2017 14:22) Final results Test Result Flag Units (Reference) B-TYPE NATRIURETIC PEPTIDE 274 H pg/ml (5-100) CHEM 13 PANEL: (ZULEIKA: 03/29/2017 13:35) ( MsgRcvd 03/29/2017 14:19) Final results Test Result Flag Units (Reference) GLUCOSE 122 H mg/dL (70-110) BUN 16 mg/dL (7-18) CREATININE 0.9 mg/dL (0.6-1.3) Estimated GFR >60 mL/min Estimated GFR- >60 mL/min Note: Persistent reduction over 3 months in eGFR<60 mL/min/1.73 m2 defines CKD. Patients with eGFR values>=60 mL/min/1.73 m2 may also have CKD if evidence ofpersistent proteinuria. Additional information may be foundat www.kidney.org. SODIUM 143 mmol/L (136-145) POTASSIUM 4.5 mmol/L (3.5-5.1) CHLORIDE 108 H mmol/L (98-107) CARBON DIOXIDE 24 mmol/L (21-32) CALCIUM 8.4 L mg/dL (8.5-10.1) TOTAL PROTEIN 7.0 g/dL (6.4-8.2) ALBUMIN 3.3 g/dL (3.3-5.0) BILIRUBIN, TOTAL 0.8 mg/dL (0.0-1.0) ALKALINE PHOSPHATASE 70 U/L (46-116) AST (SGOT) 23 U/L (15-37) ALT (SGPT) 35 U/L (12-78) MAGNESIUM 1.9 mg/dL (1.8-2.4) AMYLASE 53 U/L (25-115) CPK 47 U/L (24-260) TROPONIN I <0.05 ng/mL (0.00-1.5) TROPONIN REFERENCE RANGE:<0.1 NEGATIVE0.1-1.5 INDETERMINANT>1.5 POSITIVE THYROID STIMULATING HORMONE 1.412 uIU/mL (0.30-3.74) . Pulse Oximetry: 03/29/2017 13:15 O2 saturation: 95%. (FIO2 - room air). Interpretation: normal. 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 1 L NS IV. ASA 81 mg po - taken prior to arrival. 15:00. HR 100-120's. Pt still with moderate left frontal area MTZ, but otherwise no CP, SOB or upper or lower extremity numbness or weakness or dysarthria or dysphagia. CT with marked changes c/w large cerebellar infarct and early herniation. stroke attending contacted. NAYANW will transport pt emergently. HR still elevated, but do not want to further drop the BP in the setting of acute stroke. Pt is tolerating (symptomatically) HR in 140's well. Critical care performed (75 minutes). Time is exclusive of separately billable procedures. Time includes: direct patient care, patient reassessment, coordination of patient care, interpretation of data (laboratory data, pulse oximetry, chest xrays and prior electrocardiograms), review of patient's medical records, medical consultation, family consultation regarding treatment decisions and documentation of patient care. Procedures excluded from critical care time: electrocardiography. Discussed case with health care provider ([facility] transfer center call returned 15:17). Patient/family counseled. Old ED records reviewed. Transfer orders written. Disposition: Transferred to [facility]. Condition: serious. CLINICAL IMPRESSION Acute vascular headache. 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 TPA was not administered . tPA was not administered because the time patient was last known well was greater than 3 hours prior to arrival and exclusion criteria were present. patient arrived in the emergency department greater than 2 hours since time last known well. No hemorrhage. New onset atrial flutter with uncontrolled rate. (Electronically signed by Robert Pate DO 03/30/2017 9:57)
--- NOTE | 2017-03-29 15:24 | ED ORDER SUMMARY ---
..... Patient: KATIE DAVID OrderSheet [facility] VisitID: [id number] [place] [address] 66y, M Registration Date/Time: 03/29/2017 ORDER SHEET Weight: 87.5 kg (measured) Allergies: No Known Drug Allergy GENERAL ORDERS: Chest 1V [facility] (Ack 13:17 PWeiler ER Tech1) (13:44 JRomanelli R.N.) Auto Body Straightener (Continuous) (13:03/29/2017 [facility] DO) (13:44 JRomanelli R.N.) UA-Culture if indicated Urgent (13:03/29/2017 [facility]) (Ack 13:17 PWeiler ER Tech1) (13:54 JRomanelli R.N.) Cardiac Panel Stat (13:03/29/2017 [facility]) (Ack 13:17 PWeiler ER Tech1) (13:44 JRomanelli R.N.) BNP Urgent (13:14 [facility] ([facility]ck 13:17 PWeiler ER Tech1) (13:44 JRomanelli R.N.) Amylase Urgent (13:03/29/2017 [facility]) (Ack 13:17 PWeiler ER Tech1) (13:44 JRomanelli R.N.) TSH Urgent (13:03/29/2017 [facility]) (Ack 13:17 PWeiler ER Tech1) (13:44 JRomanelli R.N.) Urine Drug Screen Urgent (13:14 03/29/2017 [facility]) (Ack 13:17 PWeiler ER Tech1) (13:54 JRomanelli R.N.) Pulse oximeter (13:03/29/2017 [facility]) (13:44 JRomanelli R.N.) EKG - ER Stat (13:03/29/2017 [facility]) (13:22 PWeiler ER Tech1) Vitals (13:03/29/2017 [facility]) (13:44 JRomanelli R.N.) CT Head wo Cont Urgent (14:33 03/29/2017 [facility]) (Ack 14:37 PWeiler ER Tech1) (0:05 JRomanelli R.N.) Call (Place call to): ( transfer center - neurosurg; cerebellar infarct) (15:02 03/29/2017 [facility]) (Ack 15:06 PWeiler ER Tech1) (15:31 PWeiler ER Tech1) MEDICATION ORDERS: IV FLUIDS: IV NS : initial bolus 500 mL (1000 mL/hr), then 250 mL/hr for X2 (NOW) (13:14 03/29/2017 [facility]) (13:36 omanelli R.N.) Diltiazem IV 15 mg (NOW) (13:23 03/29/2017 [facility]) (13:54 omanrosemarie R.N.) Diltiazem IV 10 mg (NOW) (14:10 03/29/2017 [facility]) (14:20 omanelli R.N.) ORDER SHEET NOTES: [Electronically signed by Huang Paiz R.N. (00:09 03/30/2017)] [Electronically signed by Robert Pate DO (09:57 03/30/2017)] [Electronically locked/signed by Huang Paiz R.N. (00:09 03/30/2017)]
--- NOTE | 2017-03-29 15:24 | ED ORDER SUMMARY ---
..... Patient: KATIE DAVID OrderSheet [facility] VisitID: [id number] [place] [address] 66y, M Registration Date/Time: 03/29/2017 ORDER SHEET Weight: 87.5 kg (measured) Allergies: No Known Drug Allergy GENERAL ORDERS: Chest 1V Urgent ([facility]:03/29/2017 [facility] (Ack 13:17 PWeiler ER Tech1) (13:44 JRomanelli R.N.) Radio Adjuster (Continuous) (13:03/29/2017 [facility] DO) (13:44 JRomanelli R.N.) UA-Culture if indicated Urgent (13:03/29/2017 [facility]) (Ack 13:17 PWeiler ER Tech1) (13:54 JRomanelli R.N.) Cardiac Panel Stat (13:03/29/2017 [facility]) (Ack 13:17 PWeiler ER Tech1) (13:44 JRomanelli R.N.) BNP Urgent [facility]13:14 [facility] (Ack 13:17 PWeiler ER Tech1) (13:44 JRomanelli R.N.) Amylase Urgent [facility]) (Ack 13:17 PWeiler ER Tech1) (13:44 JRomanelli R.N.) TSH Urgent [facility]) (Ack 13:17 PWeiler ER Tech1) (13:44 JRomanelli R.N.) Urine Drug Screen Urgent (13:14 [facility]) (Ack 13:17 PWeiler ER Tech1) (13:54 JRomanelli R.N.) Pulse oximeter (13:03/29/2017 [facility]) (13:44 JRomanelli R.N.) EKG - ER Stat (13:03/29/2017 [facility]) (13:22 PWeiler ER Tech1) Vitals (13:03/29/2017 [facility]) (13:44 JRomanelli R.N.) CT Head wo Cont Urgent (14:33 03/29/2017 [facility]) (Ack 14:37 PWeiler ER Tech1) (0:05 JRomanelli R.N.) Call (Place call to): ( transfer center - neurosurg; cerebellar infarct) (15:02 03/29/2017 [facility]) (Ack 15:06 PWeiler ER Tech1) (15:31 PWeiler ER Tech1) MEDICATION ORDERS: IV FLUIDS: IV NS : initial bolus 500 mL (1000 mL/hr), then 250 mL/hr for X2 (NOW) (13:14 03/29/2017 [facility]) (13:36 omanelli R.N.) Diltiazem IV 15 mg (NOW) (13:23 03/29/2017 [facility]) (13:54 omanrosemarie R.N.) Diltiazem IV 10 mg (NOW) (14:10 03/29/2017 [facility]) (14:20 omanelli R.N.) ORDER SHEET NOTES: [Electronically signed by Huang Paiz R.N. (00:09 03/30/2017)] [Electronically signed by Robert Pate DO (09:57 03/30/2017)] [Electronically locked/signed by Huang Paiz R.N. (00:09 03/30/2017)]
--- NOTE | 2017-03-30 09:58 | ED MAR SUMMARY ---
..... Medication Administration Record [facility] [address] [place] [address] Patient: KATIE DAVID Visit ID: [id number] 66y, M Weight: 87.5 kg Height/Length: 72 in BMI: 26.2 ALLERGIES: No Known Drug Allergy Start 13:19 03/29/2017 Huang Paiz RLianN., Continued Upon Discharge 16:10 03/29/2017 Huang Paiz R.N. Medication Administered: IV NS (SALINE), Dose: IV Fluids over 60 minute(s), Rate: 1000 mL/hr, Bolus: 500 mL over 30 second(s), Dispensed: 1000 mL bag, Site: #1 right AC. Medication Ordered: IV NS : initial bolus 500 mL (1000 mL/hr), then 250 mL/hr for X2 (NOW). Given 13:50 03/29/2017 Huang Paiz RLianN. Medication Administered: DILTIAZEM [IVP], Dose: 15 mg IVP over 2 minute(s), Site: #1 right AC. Medication Ordered: Diltiazem IV 15 mg (NOW). Given 14:10 03/29/2017 Huang Paiz R.N. Medication Administered: DILTIAZEM [IVP], Dose: 10 mg IVP over 2 minute(s), Site: #1 right AC. Medication Ordered: Diltiazem IV 10 mg (NOW).
--- NOTE | 2017-03-30 09:58 | ED MAR SUMMARY ---
..... Medication Administration Record [facility] [address] [place] [address] Patient: KATIE DAVID Visit ID: [id number] 66y, M Weight: 87.5 kg Height/Length: 72 in BMI: 26.2 ALLERGIES: No Known Drug Allergy Start 13:19 03/29/2017 Huang Paiz RLianN., Continued Upon Discharge 16:10 03/29/2017 Huang Paiz R.N. Medication Administered: IV NS (SALINE), Dose: IV Fluids over 60 minute(s), Rate: 1000 mL/hr, Bolus: 500 mL over 30 second(s), Dispensed: 1000 mL bag, Site: #1 right AC. Medication Ordered: IV NS : initial bolus 500 mL (1000 mL/hr), then 250 mL/hr for X2 (NOW). Given 13:50 03/29/2017 Huang Paiz RLianN. Medication Administered: DILTIAZEM [IVP], Dose: 15 mg IVP over 2 minute(s), Site: #1 right AC. Medication Ordered: Diltiazem IV 15 mg (NOW). Given 14:10 03/29/2017 Huang Paiz R.N. Medication Administered: DILTIAZEM [IVP], Dose: 10 mg IVP over 2 minute(s), Site: #1 right AC. Medication Ordered: Diltiazem IV 10 mg (NOW).
--- NOTE | 2017-03-30 09:58 | ED MED RECONCILIATION SUMMARY ---
Patient: KATIE DAVID Medication Reconciliation Report [facility] VisitID: [id number] [address] [place] [address] 66y, M Registration Date/Time: 03/29/2017 Weight: 87.5 kg Height/Length: 72 in. BMI: 26.2 ALLERGIES: No Known Drug Allergy The patient's Home Medications are listed below: THE FOLLOWING MEDICATIONS NEED TO BE RECONCILED: Aspirin 81 mg, daily Cardizem CD Oral (120 mg) 1 capsule, 2 x daily Lovastatin Oral 20 mg, at bedtime Multivitamins Oral 1 pill, daily Viagra Oral (100 mg) 1 tablet The source(s) of the original Home Medication information: Not obtained. The following Medications were given to the patient in the Emergency Department: IV NS IV Fluids bolus 500 mL over 30 second(s), then 1000 mL/hr, administered: 03/29/2017 1:19:00 PM Diltiazem [IVP] IVP 15 mg, administered: 03/29/2017 1:50:00 PM Diltiazem [IVP] IVP 10 mg, administered: 03/29/2017 2:10:00 PM The following Medications were prescribed to the patient: None.
--- NOTE | 2017-03-30 09:58 | ED MED RECONCILIATION SUMMARY ---
Patient: KATIE DAVID Medication Reconciliation Report [facility] VisitID: [id number] [address] [place] [address] 66y, M Registration Date/Time: 03/29/2017 Weight: 87.5 kg Height/Length: 72 in. BMI: 26.2 ALLERGIES: No Known Drug Allergy The patient's Home Medications are listed below: THE FOLLOWING MEDICATIONS NEED TO BE RECONCILED: Aspirin 81 mg, daily Cardizem CD Oral (120 mg) 1 capsule, 2 x daily Lovastatin Oral 20 mg, at bedtime Multivitamins Oral 1 pill, daily Viagra Oral (100 mg) 1 tablet The source(s) of the original Home Medication information: Not obtained. The following Medications were given to the patient in the Emergency Department: IV NS IV Fluids bolus 500 mL over 30 second(s), then 1000 mL/hr, administered: 03/29/2017 1:19:00 PM Diltiazem [IVP] IVP 15 mg, administered: 03/29/2017 1:50:00 PM Diltiazem [IVP] IVP 10 mg, administered: 03/29/2017 2:10:00 PM The following Medications were prescribed to the patient: None.
--- NOTE | 2017-03-30 09:58 | ED DISCHARGE INSTRUCTIONS ---
Patient: KATIE DAVID General Instructions [facility] VisitID: [id number] [address] [place] [address] 66y, M Registration Date/Time: 03/29/2017 Acute vascular headache. 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 TPA was not administered . tPA was not administered because the time patient was last known well was greater than 3 hours prior to arrival and exclusion criteria were present. patient arrived in the emergency department greater than 2 hours since time last known well. No hemorrhage. New onset atrial flutter with uncontrolled rate. (Electronically signed by Robert Pate DO 03/30/2017 9:57)
--- NOTE | 2017-03-30 09:58 | ED DISCHARGE INSTRUCTIONS ---
Patient: KATIE DAVID General Instructions [facility] VisitID: [id number] [address] [place] [address] 66y, M Registration Date/Time: 03/29/2017 Acute vascular headache. 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 TPA was not administered . tPA was not administered because the time patient was last known well was greater than 3 hours prior to arrival and exclusion criteria were present. patient arrived in the emergency department greater than 2 hours since time last known well. No hemorrhage. New onset atrial flutter with uncontrolled rate. (Electronically signed by Robert Pate DO 03/30/2017 9:57)
== END 2017-03-29 16:10 | disposition short-term general hospital (02) ==
LOC: ED SRH 13:08
DX: I63.9 Cerebral infarction, unspecified (principal); I48.92 Unspecified atrial flutter; G44.1 Vascular headache, not elsewhere classified; I10 Essential (primary) hypertension; E78.5 Hyperlipidemia, unspecified; Z79.82 Long term (current) use of aspirin; Z79.899 Other long term (current) drug therapy; Z72.0 Tobacco use